=== PATIENT | male | born 1955 | race Caucasian/White ===

== ENCOUNTER 2023-10-17 18:55 | Inpatient (IN) | payer MEDICARE, OTHER ==
--- NOTE | 2023-10-17 19:11 | ED Physician Documentation ---
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 He quit smoking 12 years ago. He suddenly became short of breath with coughing and feeling something was stuck in his throat this evening. There is no associated chest pain or pedal edema. He does not wear oxygen at home. He does use inhalers at home. He is visiting from [facility] with his . PD PAST MEDICAL HISTORY - Past Medical History Past Medical History: Yes Cardiovascular: Hypertension, High cholesterol Respiratory: COPD - Past Surgical History Past Surgical History: Yes - Present Medications Home Medications: Ambulatory Orders Medication Instructions Recorded Confirmed Albuterol Sulfate [Proair See Rx Instructions .ROUTE 10/17/23 10/17/23 Respiclick] .COMPLEX PRN Amlodipine Besylate [Norvasc] 1 tab PO DAILY 10/17/23 10/17/23 Aspirin EC [Ecotrin] 1 tab PO DAILY 10/17/23 10/17/23 Atorvastatin Calcium [Lipitor] 1 tab PO QPM 10/17/23 10/17/23 Colesevelam HCl [Welchol] 2 tab PO BIDWM 10/17/23 10/17/23 Empagliflozin [Jardiance] 1 tab PO DAILY 10/17/23 10/17/23 Ezetimibe [Zetia] 1 tab PO HS 10/17/23 10/17/23 Fexofenadine [Alexandria] 1 tab PO DAILY 10/17/23 10/17/23 Metoprolol Succinate [Toprol Xl] 50 mg PO QPM 10/17/23 10/17/23 Omeprazole 1 cap PO HS 10/17/23 10/17/23 Telmisartan 1 tab PO QPM 10/17/23 10/17/23 Terazosin [Hytrin] 1 cap PO HS 10/17/23 10/17/23 Tiotropium Br/Olodaterol HCl 2 puffs INH DAILY 10/17/23 10/17/23 [Stiolto Respimat Inhaler (60)] - Allergies Allergies/Adverse Reactions: Allergies Allergy/AdvReac Type Severity Reaction Status Date / Time No Known Drug Allergies Allergy Verified 10/17/23 18:59 - Social History Does the pt smoke?: No Smoking Status: Never smoker Does the pt drink ETOH?: No Does the pt have substance abuse?: No - Immunizations Immunizations are current?: Yes PD ED PE NORMAL - Vitals Vital signs reviewed: Yes (He is hypoxic, mildly tachypneic and tachycardic.) - General General: Alert and oriented X 3, No acute distress - HEENT HEENT: Pharynx benign - Cardiac Cardiac: RRR, No murmur - Respiratory Respiratory: Other (Diminished throughout, most impressively at the left base where breath sounds are basically absent. Mildly labored breathing.) - Extremities Extremities: No edema, No calf tenderness / cord - Neuro Neuro: Alert and oriented X 3, Normal speech Results - Vitals Vitals: Vital Signs - 24 hr 10/17/23 10/17/23 10/17/23 18:59 19:15 19:23 Temperature 36.5 C Heart Rate 112 H 113 H 114 H Respiratory 28 H 28 H 34 H Rate Blood Pressure 146/60 H 155/73 H O2 Saturation 86 L 93 If not protocol : Oxygen Flow, liters/minute 10/17/23 19:53 Temperature Heart Rate 112 H Respiratory 32 H Rate Blood Pressure 147/70 H O2 Saturation 91 L If not protocol 6 : Oxygen Flow, liters/minute Oxygen O2 Source Nasal cannula Oxygen Flow Rate 6 - EKG (time done) 1935 EKG releavant findings:: EKG personally interpreted by author of this note. Relevant findings are: Rate: Rate (enter#) (113) Rhythm: Sinus tachycardia, LAE [place]: Normal Intervals: Normal [place] QRS: Normal Ischemia: Normal ST segments - Labs Labs: Laboratory Tests 10/17/23 10/17/23 10/17/23 19:11 19:11 19:11 WBC 21.5 H RBC 5.17 Hgb 16.3 Hct 48.1 MCV 93.0 MCH 31.5 H MCHC 33.9 RDW 14.0 Plt Count 262 MPV 9.6 Neut # (Auto) Not Reportable Lymph # (Auto) Not Reportable [place] # (Auto) Not Reportable Eos # (Auto) Not Reportable Baso # (Auto) Not Reportable Absolute Nucleated RBC Not Reportable Total Counted 100 Band Neuts % (Manual) 0 Abnorm Lymph % (Manual) 1 Nucleated RBC % Not Reportable Neutrophils # (Manual) 18.5 H Lymphocytes # (Manual) 1.7 Monocytes # (Manual) 1.1 H Eosinophils # (Manual) 0.2 Basophils # (Manual) 0.0 Differential Comment MANUAL DIFFERENTIAL WBC Morphology 1+ SMUDGE CELLS Platelet Estimate NORMAL (130-450,000) Platelet Morphology NORMAL APPEARANCE RBC Morph Micro Appear NORMAL APPEARANCE VBG pH 7.354 VBG pCO2 35.4 L VBG pO2 31.9 VBG HCO3 19.3 L VBG Total CO2 20.4 L VBG O2 Saturation 64.4 VBG Base Excess -5.3 L Sodium 135 Potassium 4.5 Chloride 106 Carbon Dioxide 21 Anion Gap 8.0 BUN 27 H Creatinine 1.5 H Estimated GFR (MDRD) 47 L Glucose 150 H Lactic Acid Calcium 9.9 Phosphorus 3.1 Magnesium 1.7 Total Bilirubin 0.5 AST 16 ALT 17 Alkaline Phosphatase 85 Total Protein 7.4 Albumin 4.6 Globulin 2.8 Albumin/Globulin Ratio 1.6 Nasal Adenovirus (PCR) Nasal B. parapertussis DNA (PCR) Nasal Coronavir 229E PCR Nasal Coronavir HKU1 PCR Nasal Coronavir NL63 PCR Nasal Coronavir OC43 PCR Nasal Enterovir/Rhinovir PCR Nasal Influenza B PCR Nasal Influenza A PCR Nasal Parainfluen 1 PCR Nasal Parainfluen 2 PCR Nasal Parainfluen 3 PCR Nasal Parainfluen 4 PCR Nasal RSV (PCR) Nasal B.pertussis DNA PCR Nasal C.pneumoniae (PCR) Cesar Human Metapneumo PCR Nasal M.pneumoniae (PCR) Nasal SARS-CoV-2 (PCR) 10/17/23 10/17/23 19:40 19:40 WBC RBC Hgb Hct MCV MCH MCHC RDW Plt Count MPV Neut # (Auto) Lymph # (Auto) [place] # (Auto) Eos # (Auto) Baso # (Auto) Absolute Nucleated RBC Total Counted Band Neuts % (Manual) Abnorm Lymph % (Manual) Nucleated RBC % Neutrophils # (Manual) Lymphocytes # (Manual) Monocytes # (Manual) Eosinophils # (Manual) Basophils # (Manual) Differential Comment WBC Morphology Platelet Estimate Platelet Morphology RBC Morph Micro Appear VBG pH VBG pCO2 VBG pO2 VBG HCO3 VBG Total CO2 VBG O2 Saturation VBG Base Excess Sodium Potassium Chloride Carbon Dioxide Anion Gap BUN Creatinine Estimated GFR (MDRD) Glucose Lactic Acid 1.4 Calcium Phosphorus Magnesium Total Bilirubin AST ALT Alkaline Phosphatase Total Protein Albumin Globulin Albumin/Globulin Ratio Nasal Adenovirus (PCR) NOT DETECTED Nasal B. parapertussis DNA (PCR) NOT DETECTED Nasal Coronavir 229E PCR NOT DETECTED Nasal Coronavir HKU1 PCR NOT DETECTED Nasal Coronavir NL63 PCR NOT DETECTED Nasal Coronavir OC43 PCR NOT DETECTED Nasal Enterovir/Rhinovir PCR NOT DETECTED Nasal Influenza B PCR NOT DETECTED Nasal Influenza A PCR NOT DETECTED Nasal Parainfluen 1 PCR NOT DETECTED Nasal Parainfluen 2 PCR NOT DETECTED Nasal Parainfluen 3 PCR NOT DETECTED Nasal Parainfluen 4 PCR NOT DETECTED Nasal RSV (PCR) NOT DETECTED Nasal B.pertussis DNA PCR NOT DETECTED Nasal C.pneumoniae (PCR) NOT DETECTED Cesar Human Metapneumo PCR NOT DETECTED Nasal M.pneumoniae (PCR) NOT DETECTED Nasal SARS-CoV-2 (PCR) NOT DETECTED - Rads (name of study) Single view chest x-ray was unremarkable Relevant Findings:: Final report received, EMP independent interpretation of test PD Medical Decision Making - ED course ED course: This is a 68-year-old gentleman who is visiting from [place] who presents with a sudden onset COPD exacerbation. Nothing in the history or physical to suggest PE or cardiac compromise. Workup in the emergency department demonstrates a white count of 21,000 and an otherwise normal CBC. His venous blood gas is relatively unremarkable. He does have some decreased renal function of unclear acuity given lack of prior records. He was treated in the emergency department with IV Rocephin and azithromycin after blood cultures. He was given nebs and steroids. He had a significant oxygen requirement and ended up being on 13 L at the time of decision to admit which was 8:23 PM when a telehealth consultation was placed. Departure - Departure Disposition: 66 [facility] DC/Xfer Clinical Impression: COPD with respiratory failure, acute Respiratory failure Qualifiers: Chronicity: acute Respiratory failure complication: hypoxia Qualified Code(s): J96.01 - Acute respiratory failure with hypoxia Condition: Serious Forms: PCP List
[2023-10-17 19:15] LABS: BASOPHILS % (AUTO) 0.4 %; EOSINOPHILS % (AUTO) 0.3 %; HCT - HEMATOCRIT 48.1 % (42.0-52.0); HGB - HEMOGLOBIN 16.3 g/dL (14.0-18.0); LYMPHOCYTES % (AUTO) 3.2 %; MEAN CORPUSCULAR HEMOGLOBIN 31.5 pg (27.0-31.0); MEAN CORPUSCULAR HGB CONC 33.9 g/dL (32.0-36.0); MEAN PLATELET VOLUME 9.6 fL (7.4-11.4); MONOCYTES % (AUTO) 5.3 %; NEUTROPHILS % (AUTO) 90.4 %; PLT - PLATELET COUNT 262 10^3/uL (130-450); RED BLOOD COUNT 5.17 10^6/uL (4.70-6.10); WHITE BLOOD COUNT 21.5 x10^3/uL (4.8-10.8)
[2023-10-17] MEDS: ALBUTEROL NEB 2.5 MG/3 ML INH STA (19:15)
[2023-10-17] MEDS: IPRATROPIUM/ALBUTEROL 3 ML NEB INH STA (19:15)
[2023-10-17 19:17] LABS: VBG BASE EXCESS -5.3 mmol/L (-2 - +2); VBG HCO3 19.3 mmol/L (23-28); VBG OXYGEN SATURATION 64.4 % (60-80); VBG PCO2 35.4 mmHg (41-51); VBG PH 7.354 (7.31-7.41); VBG PO2 31.9 mmHg (25-47); VBG TOTAL CO2 20.4 mmol/L (24-29)
[2023-10-17 19:24] LABS: BAND NEUTROPHILS % (MANUAL) 0 %
[2023-10-17 19:32] LABS: ALBUMIN 4.6 g/dL (3.2-5.5); ALBUMIN/GLOBULIN RATIO 1.6 (1.0-2.2); BILIRUBIN,TOTAL 0.5 mg/dL (0.2-1.0); CALCIUM 9.9 mg/dL (8.5-10.3); CREATININE 1.5 mg/dL (0.6-1.3); MAGNESIUM 1.7 mg/dL (1.7-2.3); PHOSPHORUS 3.1 mg/dL (2.5-5.0); POTASSIUM 4.5 mmol/L (3.5-4.5); TOTAL PROTEIN 7.4 g/dL (6.4-8.9)
[2023-10-17 19:34] LABS: ABNORMAL LYMPHS % (MANUAL) 1 %; EOSINOPHILS # (MANUAL) 0.2 10^3/uL (0-0.7); LYMPHOCYTES # (MANUAL) 1.7 10^3/uL (1.5-3.5); LYMPHOCYTES % (MANUAL) 7 %; MONOCYTES # (MANUAL) 1.1 10^3/uL (0.0-1.0); NEUTROPHILS # (MANUAL) 18.5 10^3/uL (1.5-6.6); PLATELET ESTIMATE, MANUAL NORMAL (130-450,000) (NORMAL); PLATELET MORPHOLOGY NORMAL APPEARANCE (NORMAL); RBC MORPHOLOGY (MULTIPLE) NORMAL APPEARANCE (NORMAL); WBC MORPHOLOGY (MULTIPLE) 1+ SMUDGE CELLS (NORMAL)
[2023-10-17 19:35] LABS: DIFFERENTIAL COMMENT MANUAL DIFFERENTIAL
--- NOTE | 2023-10-17 19:51 | XRAY Report ---
PROCEDURE: Chest 1V INDICATIONS: cough hypoxemia TECHNIQUE: One view of the chest was acquired. COMPARISON: None. FINDINGS: Surgical changes and devices: None. Lungs and pleura: No pleural effusions or pneumothorax. Lungs are clear. Mediastinum: Mediastinal contours appear normal. Heart size is normal. Bones and chest wall: No suspicious bony lesions. Overlying soft tissues appear unremarkable. IMPRESSION: No acute cardiopulmonary process. Reviewed by: Britney Rao MD, PhD on 10/17/2023 7:50 PM PDT Approved by: Britney Rao MD, PhD on 10/17/2023 7:50 PM PDT Station ID: [id number]
[2023-10-17] MEDS: methylPREDNISolone SUCCINATE 125 MG/2 ML VIAL IVP STA (19:56)
[2023-10-17] MEDS: AZITHROMYCIN INJ 500 MG in SODIUM CHLORIDE 0.9% 250 ML IV STA (19:56)
[2023-10-17] MEDS: cefTRIAXone 1 GM VIAL IVP STA (19:56)
[2023-10-17 20:42] LABS: B. PARAPERTUSSIS- RESP PCR PAN NOT DETECTED; B. PERTUSSIS- RESP PCR PANEL NOT DETECTED; C. PNEUMONIAE- RESP PCR PANEL NOT DETECTED; CORONAVIRUS 229E-RESP PCR NOT DETECTED; CORONAVIRUS HKU1-RESP PCR NOT DETECTED; CORONAVIRUS NL63-RESP PCR NOT DETECTED; CORONAVIRUS OC43-RESP PCR NOT DETECTED; HUMAN METAPNEUMOVIRUS NOT DETECTED; INFLUENZA A- RESP PCR PANEL NOT DETECTED; INFLUENZA B - RESP PCR PANEL NOT DETECTED; M. PNEUMONIAE- RESP PCR PANEL NOT DETECTED; PARAINFLUENZA VIRUS 1 NOT DETECTED; PARAINFLUENZA VIRUS 2 NOT DETECTED; PARAINFLUENZA VIRUS 3 NOT DETECTED; PARAINFLUENZA VIRUS 4 NOT DETECTED; RHINOVIRUS/ENTEROVIRUS NOT DETECTED; RSV- RESP PCR PANEL NOT DETECTED; SARS-CoV-2 -RESP PCR PANEL NOT DETECTED
[2023-10-17] MEDS ORDERED: iohexoL-300 100 ML VIAL ONE (21:13)
[2023-10-17] MEDS: iohexoL-300 100 ML VIAL IVP ONE (21:32)
--- NOTE | 2023-10-17 23:10 | CT Report ---
PROCEDURE: Angio Chest INDICATIONS: DYSPNEA, PE PROTOCOL CONTRAST: OMNI 300, 100mls TECHNIQUE: After the administration of intravenous contrast, 2 mm axial images were acquired from the pulmonary apices to the posterior costophrenic angles during the arterial phase. In addition, 1 mm lung kernel and 5 mm soft tissue kernel reconstructions were performed. 3-dimensional coronal oblique maximum int ensity projection (MIP) reformats, 8 mm axial MIP, and 5 mm coronal and sagittal MPR reformats were t hen performed through the thorax. For radiation dose reduction, the following was used: automated exp osure control, adjustment of mA and/or kV according to patient size. COMPARISON: Chest radiographs 10/17/2023. FINDINGS: Image quality: Excellent. Large vessels: No filling defects within the opacified pulmonary arteries, accounting for motion and contrast timing. No evidence of acute aortic syndrome or aortic aneurysm. Focal stenosis is seen at the origin of the brachiocephalic trunk. Lungs and pleura: No consolidation. No pleural effusions. No pneumothorax. No suspicious pulmonary n odules which require follow up. , (Bilateral emphysema in the bilateral upper lobes. Patchy ground g lass opacities are seen in the bilateral lower lobes and right middle lobe with peribronchovascular p redominance. Mediastinum: Heart size is normal. No pericardial effusion. No large vessel abnormality. No mediastin al adenopathy by size criteria. Moderate to severe coronary calcifications. Chest wall and lower neck: Thyroid is unremarkable. No axillary or supraclavicular adenopathy by size . Bones: No aggressive osseous abnormality. Upper Abdomen: Cholelithiasis. IMPRESSION: 1.No acute pulmonary embolus. 2.Patchy bilateral ground glass opacities are suspicious for an acute infectious or inflammatory proc ess. 3.Confluent centrilobular emphysema. 4.Cholelithiasis. Reviewed by: Nathaniel Quiñones MD on 10/17/2023 11:09 PM PDT Approved by: Nathaniel Quiñones MD on 10/17/2023 11:09 PM PDT Station ID: [id number]
--- NOTE | 2023-10-17 23:53 | HISTORY & PHYSICAL EXAMINATION ---
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 Presents to the ER with c/o shortness of breath. Onset this afternoon. He reports he had been coughing some yellow/green sputum earlier as well. He was wheezing, improved now since receiving steroids and nebs in the ER. He denies chest pain, palpitations, abd pain, n/v, diarrhea, dysuria, hematuria. Denies fevers or chills. Denies hemoptysis. Denies sick contacts (aside from any possible exposures while traveling). He is visiting from [facility]. He does not use home O2. Reports compliance with home meds/inhalers. He has never requiring hospitalization for COPD in the past. History - Past Medical History Cardiovascular: reports: Hypertension, High cholesterol Respiratory: reports: COPD MRSA Hx?: No Meds/Allgy - Home Medications Home Medications: Ambulatory Orders Medication Instructions Recorded Confirmed Albuterol Sulfate [Proair See Rx Instructions .ROUTE 10/17/23 10/17/23 Respiclick] .COMPLEX PRN Amlodipine Besylate [Norvasc] 1 tab PO DAILY 10/17/23 10/17/23 Aspirin EC [Ecotrin] 1 tab PO DAILY 10/17/23 10/17/23 Atorvastatin Calcium [Lipitor] 1 tab PO QPM 10/17/23 10/17/23 Colesevelam HCl [Welchol] 2 tab PO BIDWM 10/17/23 10/17/23 Empagliflozin [Jardiance] 1 tab PO DAILY 10/17/23 10/17/23 Ezetimibe [Zetia] 1 tab PO HS 10/17/23 10/17/23 Fexofenadine [Alexandria] 1 tab PO DAILY 10/17/23 10/17/23 Metoprolol Succinate [Toprol Xl] 50 mg PO QPM 10/17/23 10/17/23 Omeprazole 1 cap PO HS 10/17/23 10/17/23 Telmisartan 1 tab PO QPM 10/17/23 10/17/23 Terazosin [Hytrin] 1 cap PO HS 10/17/23 10/17/23 Tiotropium Br/Olodaterol HCl 2 puffs INH DAILY 10/17/23 10/17/23 [Stiolto Respimat Inhaler (60)] - Allergies Allergies/Adverse Reactions: Allergies Allergy/AdvReac Type Severity Reaction Status Date / Time No Known Drug Allergies Allergy Verified 10/17/23 18:59 Review of Systems - Constitutional Constitutional: denies: Fatigue, Fever, Chills, Malaise, Weakness - Cardiovascular Cariovascular: denies: Irregular heart rate, Palpitations, Chest pain - Respiratory Respiratory: reports: Cough, Sputum production, Wheezing, SOB at rest, SOB with exertion - Gastrointestinal Gastrointestinal: denies: Abdominal pain, Constipation, Diarrhea, Nausea, Vomiting - Genitourinary Genitourinary: denies: Dysuria, Frequency, Urgency, Hematuria - Musculoskeletal Musculoskeletal: denies: Muscle aches - Integumentary Integumentary: denies: Rash, Pruritis - Neurological Neurological: denies: General weakness - All Other Systems All Other Systems: reports: Reviewed and negative Exam - Vital Signs Reviewed Vital Signs: Yes Vital Signs: Vital Signs x48h Temp Pulse Resp BP Pulse Ox O2 Flow Rate 10/17/23 23:00 100 25 H 130/65 100 10/17/23 22:30 103 H 26 H 130/65 94 10/17/23 22:00 109 H 19 99 13 10/17/23 21:53 108 H 25 H 133/72 H 95 10/17/23 21:23 108 H 18 122/59 L 96 10/17/23 20:53 115 H 32 H 122/59 L 94 10/17/23 20:23 112 H 30 H 135/67 H 91 L 13 10/17/23 19:53 112 H 32 H 147/70 H 91 L 6 10/17/23 19:23 114 H 34 H 155/73 H 93 10/17/23 19:15 113 H 28 H 10/17/23 18:59 36.5 C 112 H 28 H 146/60 H 86 L - Physical Exam General Appearance: positive: No acute distress, Alert Respiratory: positive: No respiratory distress. negative: Wheezes Skin: positive: Color nml, No rash Neurologic/Psychiatric: positive: Oriented x3, Mood/affect nml Sepsis Event Note (H) - Evaluation Current Stage of Sepsis: Sepsis Possible source of Sepsis: positive: Pulmonary - Sepsis Criteria Sepsis Criteria: Recorded Heart Rate greater than 90 bpm, Recorded Respiratory Rate greater than 20, Respiratory: Increasing oxygen requirements, WBC count greater than 12,000 or less than 4000 Conclusion/Plan - Lab Results Lab results reviewed: Yes Fish Bones: 10/17/23 19:11 10/17/23 19:11 - Diagnostic Imaging Results Diagnostic Imaging Results: positive: Final report reviewed Diagnostic Imaging Results Comments: CXR unremarkable CTA chest bilateral ground glass opacities suspicious for infectious or infl ammatory process, negative for DVT - Other Other Results/Comments: Assessment/Plan: Sepsis secondary to community acquired pneumonia -Patient presents with tachycardia, tachypnea, elevated leukocytosis -Influenza/COVID/RSV negative -Bilateral opacities on CT chest, suspect community acquired pneumonia -Follow up procalcitonin -Lactic 1.9 -Continue azithromycin, ceftriaxone -Mucinex BID -IV fluid hydration overnight Acute hypoxic respiratory failure secondary to COPD exacerbation and CAP -Pt required 13 L O2 in ER, wean down as tolerated -Obtained CTA chest given tachy/hypoxia/recent travel -> negative for PE -Received IV solumedrol, continue PO prednisone 40 mg daily -IV abx as above -Scheduled duonebs HTN -BP stable, hold PO meds for now TEREZA vs CKD -Baseline Cr unknown, 1.5 at admission -IV fluid hydration as above and trend labs DVT ppx: Heparin sc Full code Core Measures - Anticipated LOS I expect patient to be DC'd or transferred within 96 hours.: Yes - DVT/VTE - Prophylaxis VTE/DVT Prophylaxis med ordered at admit?: Yes Telemedicine Consult Details - Provider Location & Consult Time Telemedicine consultation conducted via videoconferencing?: Yes List names and roles of persons who participated in consult:: patient + MD Telemedicine provider location:: [place], [place]
[2023-10-17] MEDS ORDERED: SODIUM CHLORIDE FLUSH 0.9% 10 ML SYRINGE IVP PRN (23:57)
[2023-10-17] MEDS ORDERED: ACETAMINOPHEN 325 MG TABLET PO PRN (23:57)
[2023-10-18] MEDS: guaiFENesin 600 MG TABLET PO SCH (00:38)
[2023-10-18] MEDS: SODIUM CHLORIDE FLUSH 0.9% 10 ML SYRINGE IVP SCH (00:38)
[2023-10-18] MEDS: SODIUM CHLORIDE 0.9% 1,000 ML IV SCH (00:40)
[2023-10-18 06:01] LABS: HCT - HEMATOCRIT 46.8 % (42.0-52.0); HGB - HEMOGLOBIN 15.5 g/dL (14.0-18.0); MEAN CORPUSCULAR HEMOGLOBIN 30.8 pg (27.0-31.0); MEAN CORPUSCULAR HGB CONC 33.1 g/dL (32.0-36.0); MEAN PLATELET VOLUME 10.3 fL (7.4-11.4); RED BLOOD COUNT 5.03 10^6/uL (4.70-6.10); RED CELL DISTRIBUTION WIDTH 14.3 % (12.0-15.0); WHITE BLOOD COUNT 29.1 x10^3/uL (4.8-10.8)
[2023-10-18 06:33] LABS: CALCIUM 9.6 mg/dL (8.5-10.3); CREATININE 1.5 mg/dL (0.6-1.3); POTASSIUM 4.3 mmol/L (3.5-4.5)
[2023-10-18] MEDS: IPRATROPIUM/ALBUTEROL 3 ML NEB INH SCH (07:05)
[2023-10-18] MEDS: HEPARIN 5,000 UNIT/ML VIAL SUBQ SCH (08:22)
[2023-10-18] MEDS: predniSONE 20 MG TABLET PO SCH (08:22)
[2023-10-18] MEDS: cefTRIAXone 1 GM in SODIUM CHLORIDE 0.9% MINIBAG 100 ML IV SCH (09:06)
[2023-10-18] MEDS: AZITHROMYCIN INJ 500 MG in SODIUM CHLORIDE 0.9% 250 ML IV SCH (09:52)
--- NOTE | 2023-10-18 11:20 | PHARMACY PROGRESS NOTE ---
- Best Possible Medication History Admit Date and Time: 10/17/23 2626 Processed by: Pharmacy Medications reviewed in ED?: Yes Medication History completed: Yes Patient Interview: Completed Secondary Source(s): Insurance records As the person ultimately responsible for medication therapy, providers are able to order a medication from an existing home medication list in [facility] via the "Reconcile Routine" prior to Confirmation of that medication by administrative support manager. Such practice is discouraged except when the physician, in their clinical judgment, deems that a medical need exists for a medication without regard to previous use.
--- NOTE | 2023-10-18 18:25 | PROVIDER PROGRESS NOTE ---
Subjective - Prog Note Date Prog Note Date: 10/18/23 Prog Note Time: 18:22 - Subjective Pt reports feeling: Improved Subjective: Patient was camping and on vacation when he had to come to the emergency room with his respiratory symptoms. He has been diagnosed as having pneumonia. is at the bedside and very, very anxious. They asked how long he is going to stay here. And what exactly is the diagnosis and what is my treatment. Long conversation of centrilobular emphysema and what that means. I described the anatomy of destruction to give you honeycombing. I described what the treatment is and why bronchodilators work and why inhaled steroids work. I also described the usual length of stay for pneumonia. They are much relieved when I explained that this is actually a treatable problem. He should leave here in 2 or 3 days. And then he can go back home. Which is [facility] [place] he is disappointed that he is not can to be discharged today. I gently reminded him that he is still significantly hypoxic. He has difficulty getting up out of bed to even go to the bathroom and he gets short of breath. That he can recover more in the next day or 2 and then go home. Objective - Vital Signs/Intake & Output Vital Signs: Vital Signs x48h Temp Pulse Pulse Resp BP Pulse Ox O2 Flow Rate 10/18/23 15:37 36.7 C 100 18 110/57 L 95 5 10/18/23 13:30 37.1 C 99 18 132/75 H 96 7 10/18/23 13:13 84 20 6 Intake & Output: Intake & Output 10/15/23 10/16/23 10/17/23 10/18/23 23:59 23:59 23:59 23:59 Intake Total 250 2100 Output Total 250 Balance 250 1850 - Lab Results Fish Bones: 10/18/23 05:14 10/18/23 05:14 Other Labs: Lab Results x24hrs 10/18/23 10/18/23 10/18/23 Range/Units 05:14 05:14 05:14 WBC 29.1 H (4.8-10.8) x10^3/uL RBC 5.03 (4.70-6.10) 10^6/uL Hgb 15.5 (14.0-18.0) g/dL Hct 46.8 (42.0-52.0) % MCV 93.0 (80.0-94.0) fL MCH 30.8 (27.0-31.0) pg MCHC 33.1 (32.0-36.0) g/dL RDW 14.3 (12.0-15.0) % Plt Count 260 (130-450) 10^3/uL MPV 10.3 (7.4-11.4) fL Neut # (Auto) Lymph # (Auto) [place] # (Auto) Eos # (Auto) Baso # (Auto) Absolute Nucleated RBC Total Counted Band Neuts % (Manual) (0 - 10) % Abnorm Lymph % (Manual) % Nucleated RBC % Neutrophils # (Manual) (1.5-6.6) 10^3/uL Lymphocytes # (Manual) (1.5-3.5) 10^3/uL Monocytes # (Manual) (0.0-1.0) 10^3/uL Eosinophils # (Manual) (0-0.7) 10^3/uL Basophils # (Manual) (0-0.1) 10^3/uL Differential Comment WBC Morphology (NORMAL) Platelet Estimate (NORMAL) Platelet Morphology (NORMAL) RBC Morph Micro Appear (NORMAL) VBG pH (7.31-7.41) VBG pCO2 (41-51) mmHg VBG pO2 (25-47) mmHg VBG HCO3 (23-28) mmol/L VBG Total CO2 (24-29) mmol/L VBG O2 Saturation (60-80) % VBG Base Excess (-2 - +2) mmol/L Sodium 136 (135-145) mmol/L Potassium 4.3 (3.5-4.5) mmol/L Chloride 107 (101-111) mmol/L Carbon Dioxide 18 L (21-32) mmol/L Anion Gap 11.0 (6-13) BUN 26 H (6-20) mg/dL Creatinine 1.5 H (0.6-1.3) mg/dL Estimated GFR (MDRD) 47 L (>89) Glucose 141 H (74-104) mg/dL Lactic Acid (0.5-2.2) mmol/L Calcium 9.6 (8.5-10.3) mg/dL Phosphorus (2.5-5.0) mg/dL Magnesium (1.7-2.3) mg/dL Total Bilirubin (0.2-1.0) mg/dL AST (10-42) IU/L ALT (10-60) IU/L Alkaline Phosphatase (42-121) IU/L Troponin I High Sens (2.3-19.7) ng/L Total Protein (6.4-8.9) g/dL Albumin (3.2-5.5) g/dL Globulin (2.1-4.2) g/dL Albumin/Globulin Ratio (1.0-2.2) Procalcitonin Immunoas 3.83 H* (<0.5) ng/mL Nasal Adenovirus (PCR) Nasal B. parapertussis DNA (PCR) Nasal Coronavir 229E PCR Nasal Coronavir HKU1 PCR Nasal Coronavir NL63 PCR Nasal Coronavir OC43 PCR Nasal Enterovir/Rhinovir PCR Nasal Influenza B PCR Nasal Influenza A PCR Nasal Parainfluen 1 PCR Nasal Parainfluen 2 PCR Nasal Parainfluen 3 PCR Nasal Parainfluen 4 PCR Nasal RSV (PCR) Nasal B.pertussis DNA PCR Nasal C.pneumoniae (PCR) Cesar Human Metapneumo PCR Nasal M.pneumoniae (PCR) Nasal SARS-CoV-2 (PCR) 10/17/23 10/17/23 10/17/23 Range/Units 21:15 19:40 19:40 WBC (4.8-10.8) x10^3/uL RBC (4.70-6.10) 10^6/uL Hgb (14.0-18.0) g/dL Hct (42.0-52.0) % MCV (80.0-94.0) fL MCH (27.0-31.0) pg MCHC (32.0-36.0) g/dL RDW (12.0-15.0) % Plt Count (130-450) 10^3/uL MPV (7.4-11.4) fL Neut # (Auto) Lymph # (Auto) [place] # (Auto) Eos # (Auto) Baso # (Auto) Absolute Nucleated RBC Total Counted Band Neuts % (Manual) (0 - 10) % Abnorm Lymph % (Manual) % Nucleated RBC % Neutrophils # (Manual) (1.5-6.6) 10^3/uL Lymphocytes # (Manual) (1.5-3.5) 10^3/uL Monocytes # (Manual) (0.0-1.0) 10^3/uL Eosinophils # (Manual) (0-0.7) 10^3/uL Basophils # (Manual) (0-0.1) 10^3/uL Differential Comment WBC Morphology (NORMAL) Platelet Estimate (NORMAL) Platelet Morphology (NORMAL) RBC Morph Micro Appear (NORMAL) VBG pH (7.31-7.41) VBG pCO2 (41-51) mmHg VBG pO2 (25-47) mmHg VBG HCO3 (23-28) mmol/L VBG Total CO2 (24-29) mmol/L VBG O2 Saturation (60-80) % VBG Base Excess (-2 - +2) mmol/L Sodium (135-145) mmol/L Potassium (3.5-4.5) mmol/L Chloride (101-111) mmol/L Carbon Dioxide (21-32) mmol/L Anion Gap (6-13) BUN (6-20) mg/dL Creatinine (0.6-1.3) mg/dL Estimated GFR (MDRD) (>89) Glucose (74-104) mg/dL Lactic Acid 1.4 (0.5-2.2) mmol/L Calcium (8.5-10.3) mg/dL Phosphorus (2.5-5.0) mg/dL Magnesium (1.7-2.3) mg/dL Total Bilirubin (0.2-1.0) mg/dL AST (10-42) IU/L ALT (10-60) IU/L Alkaline Phosphatase (42-121) IU/L Troponin I High Sens 12.6 (2.3-19.7) ng/L Total Protein (6.4-8.9) g/dL Albumin (3.2-5.5) g/dL Globulin (2.1-4.2) g/dL Albumin/Globulin Ratio (1.0-2.2) Procalcitonin Immunoas (<0.5) ng/mL Nasal Adenovirus (PCR) NOT DETECTED Nasal B. parapertussis DNA (PCR) NOT DETECTED Nasal Coronavir 229E PCR NOT DETECTED Nasal Coronavir HKU1 PCR NOT DETECTED Nasal Coronavir NL63 PCR NOT DETECTED Nasal Coronavir OC43 PCR NOT DETECTED Nasal Enterovir/Rhinovir PCR NOT DETECTED Nasal Influenza B PCR NOT DETECTED Nasal Influenza A PCR NOT DETECTED Nasal Parainfluen 1 PCR NOT DETECTED Nasal Parainfluen 2 PCR NOT DETECTED Nasal Parainfluen 3 PCR NOT DETECTED Nasal Parainfluen 4 PCR NOT DETECTED Nasal RSV (PCR) NOT DETECTED Nasal B.pertussis DNA PCR NOT DETECTED Nasal C.pneumoniae (PCR) NOT DETECTED Cesar Human Metapneumo PCR NOT DETECTED Nasal M.pneumoniae (PCR) NOT DETECTED Nasal SARS-CoV-2 (PCR) NOT DETECTED 10/17/23 10/17/23 10/17/23 Range/Units 19:11 19:11 19:11 WBC 21.5 H (4.8-10.8) x10^3/uL RBC 5.17 (4.70-6.10) 10^6/uL Hgb 16.3 (14.0-18.0) g/dL Hct 48.1 (42.0-52.0) % MCV 93.0 (80.0-94.0) fL MCH 31.5 H (27.0-31.0) pg MCHC 33.9 (32.0-36.0) g/dL RDW 14.0 (12.0-15.0) % Plt Count 262 (130-450) 10^3/uL MPV 9.6 (7.4-11.4) fL Neut # (Auto) Not Reportable Lymph # (Auto) Not Reportable [place] # (Auto) Not Reportable Eos # (Auto) Not Reportable Baso # (Auto) Not Reportable Absolute Nucleated RBC Not Reportable Total Counted 100 Band Neuts % (Manual) 0 (0 - 10) % Abnorm Lymph % (Manual) 1 % Nucleated RBC % Not Reportable Neutrophils # (Manual) 18.5 H (1.5-6.6) 10^3/uL Lymphocytes # (Manual) 1.7 (1.5-3.5) 10^3/uL Monocytes # (Manual) 1.1 H (0.0-1.0) 10^3/uL Eosinophils # (Manual) 0.2 (0-0.7) 10^3/uL Basophils # (Manual) 0.0 (0-0.1) 10^3/uL Differential Comment MANUAL DIFFERENTIAL WBC Morphology 1+ SMUDGE CELLS (NORMAL) Platelet Estimate NORMAL (130-450,000) (NORMAL) Platelet Morphology NORMAL APPEARANCE (NORMAL) RBC Morph Micro Appear NORMAL APPEARANCE (NORMAL) VBG pH 7.354 (7.31-7.41) VBG pCO2 35.4 L (41-51) mmHg VBG pO2 31.9 (25-47) mmHg VBG HCO3 19.3 L (23-28) mmol/L VBG Total CO2 20.4 L (24-29) mmol/L VBG O2 Saturation 64.4 (60-80) % VBG Base Excess -5.3 L (-2 - +2) mmol/L Sodium 135 (135-145) mmol/L Potassium 4.5 (3.5-4.5) mmol/L Chloride 106 (101-111) mmol/L Carbon Dioxide 21 (21-32) mmol/L Anion Gap 8.0 (6-13) BUN 27 H (6-20) mg/dL Creatinine 1.5 H (0.6-1.3) mg/dL Estimated GFR (MDRD) 47 L (>89) Glucose 150 H (74-104) mg/dL Lactic Acid (0.5-2.2) mmol/L Calcium 9.9 (8.5-10.3) mg/dL Phosphorus 3.1 (2.5-5.0) mg/dL Magnesium 1.7 (1.7-2.3) mg/dL Total Bilirubin 0.5 (0.2-1.0) mg/dL AST 16 (10-42) IU/L ALT 17 (10-60) IU/L Alkaline Phosphatase 85 (42-121) IU/L Troponin I High Sens (2.3-19.7) ng/L Total Protein 7.4 (6.4-8.9) g/dL Albumin 4.6 (3.2-5.5) g/dL Globulin 2.8 (2.1-4.2) g/dL Albumin/Globulin Ratio 1.6 (1.0-2.2) Procalcitonin Immunoas (<0.5) ng/mL Nasal Adenovirus (PCR) Nasal B. parapertussis DNA (PCR) Nasal Coronavir 229E PCR Nasal Coronavir HKU1 PCR Nasal Coronavir NL63 PCR Nasal Coronavir OC43 PCR Nasal Enterovir/Rhinovir PCR Nasal Influenza B PCR Nasal Influenza A PCR Nasal Parainfluen 1 PCR Nasal Parainfluen 2 PCR Nasal Parainfluen 3 PCR Nasal Parainfluen 4 PCR Nasal RSV (PCR) Nasal B.pertussis DNA PCR Nasal C.pneumoniae (PCR) Cesar Human Metapneumo PCR Nasal M.pneumoniae (PCR) Nasal SARS-CoV-2 (PCR) Sepsis Event Note (H) - Evaluation Current Stage of Sepsis: Sepsis Possible source of Sepsis: positive: Pulmonary - Sepsis Criteria Sepsis Criteria: Recorded Heart Rate greater than 90 bpm, Recorded Respiratory Rate greater than 20, Respiratory: Increasing oxygen requirements, WBC count greater than 12,000 or less than 4000 Assessment/Plan - Problem List (1) Sepsis Impression: He presented as hypoxia, tachypnea, elevated white cell count, and a relative drop in blood pressure. He has responded to therapy and that sepsis criteria have resolved except for the slight drop in blood pressure. Source is pneumonia. (2) Acute respiratory failure with hypoxia Impression: Patient presents as cough, congestion, and pneumonia on chest x-ray. Started on antibiotics, nebulizers, inhaled steroids. Started at 13 L Oxymizer. By this morning he was 7 L Oxymizer. By this afternoon he is 5 L Oxymizer. White cell count was 21.5 thousand on admission with a left shift. Today he is 29.1 and differential was not done. But he varies between 5-7 to keep his O2 sats above 92%. He shares with me that his baseline O2 sat with a COPD is 92% on room air. He has not needed oxygen yet. Blood cultures have been ordered and are pending. He did not get sputum cultures. Plan: continue rocephin Day #2/5 and azithromycin Day #2/3 of abx. His oxygen requirements have gone down so I do think he is getting better. The white cell count may be just demargination from steroids. But I will be keeping an eye on that as an indicator of clinical improvement. If blood cultures come back positive, I will then adjust antibiotics and narrow treatment plan depending on sensitivities (3) COPD with respiratory failure, acute Impression: anatomy of centrilobular emphysema discussed with the patient and . Diagrams drawn. They are very grateful that they have an understanding of what his is disease now. conceptually they never really understood what his lung disease was about. At home he is usually on respi click with albuterol, and Mauri Tropium. Here we have him on DuoNeb and prednisone p.o. Plan: Stop prednisone at 5 days. Continue DuoNeb until discharge. I did have a brief discussion about advance care planning. Right now he is a full code. But they have never really thought about the progression of his disease. They were not aware that it would get steadily worse over time. And they are interested in doing advance care planning conversation tomorrow. (4) Type 2 diabetes mellitus, uncontrolled Impression: At home he takes Jardiance. He is not on anything for his glucose here. With the steroids his glucose was 150 yesterday, 141 today. Plan: I will order Sliding scale insulin with hypoglycemia protocol Qualifiers: Glycemic state: with hyperglycemia Qualified Code(s): E11.65 - Type 2 diabetes mellitus with hyperglycemia (5) Hypertension Impression: At home he is on Norvasc, beta-sheila, and ARB to drug. Without medication he is 110 systolic this afternoon. At this time I am not can to be resuming his home meds until his blood pressure gets high enough for me to do so. I will most likely start on his beta-sheila followed by the ARB. I want to avoid rebound tachycardia Qualifiers: Hypertension type: primary hypertension Qualified Code(s): I10 - Essential (primary) hypertension
[2023-10-18] MEDS: BENZONATATE 100 MG CAPSULE PO PRN (20:29)
[2023-10-18] MEDS: INSULIN LISPRO 300 UNIT/3 ML PEN SUBQ SCH (20:30)
[2023-10-19 05:21] LABS: BASOPHILS % (AUTO) 0.1 %; HCT - HEMATOCRIT 43.3 % (42.0-52.0); HGB - HEMOGLOBIN 14.2 g/dL (14.0-18.0); LYMPHOCYTES # (AUTO) 1.1 10^3/uL (1.5-3.5); LYMPHOCYTES % (AUTO) 5.2 %; MEAN CORPUSCULAR HEMOGLOBIN 31.1 pg (27.0-31.0); MEAN CORPUSCULAR HGB CONC 32.8 g/dL (32.0-36.0); MEAN CORPUSCULAR VOLUME 94.7 fL (80.0-94.0); MONOCYTES # (AUTO) 1.4 10^3/uL (0.0-1.0); MONOCYTES % (AUTO) 6.3 %; NEUTROPHILS # (AUTO) 19.3 10^3/uL (1.5-6.6); NEUTROPHILS % (AUTO) 87.9 %; PLT - PLATELET COUNT 244 10^3/uL (130-450); RED BLOOD COUNT 4.57 10^6/uL (4.70-6.10); RED CELL DISTRIBUTION WIDTH 14.9 % (12.0-15.0); WHITE BLOOD COUNT 21.9 x10^3/uL (4.8-10.8)
[2023-10-19 05:35] LABS: CALCIUM 9.2 mg/dL (8.5-10.3); CREATININE 1.3 mg/dL (0.6-1.3); POTASSIUM 4.2 mmol/L (3.5-4.5)
[2023-10-19 06:29] LABS: DIFFERENTIAL COMMENT MANUAL=AUTO DIFF; PLATELET ESTIMATE, MANUAL NORMAL (130-450,000) (NORMAL); RBC MORPHOLOGY (MULTIPLE) NORMAL APPEARANCE (NORMAL)
[2023-10-19 07:50] LABS: ESTIMATED AVERAGE GLUCOSE 128 mg/dL (70-100); HEMOGLOBIN A1c% 6.1 % (4.27-6.07)
--- NOTE | 2023-10-19 13:13 | PROVIDER PROGRESS NOTE ---
Assessment/Plan - Problem List (1) Acute respiratory failure with hypoxia Assessment/Plan: Impression: Patient presents as cough, congestion, and pneumonia on chest x-ray. Started on antibiotics, nebulizers, inhaled steroids. Started at 13 L Oxymizer. currently on 4-5L oxymizer with O2sat 91-93%. By this afternoon he is 5 L Oxymizer. White cell count was 21.5 thousand on admission with a left shift. Today he is 21.9 and differential remains with elevated neutrophils. He shares with me that his baseline O2 sat with a COPD is 92% on room air. He has not needed oxygen yet in the outpatient environment. Here he has been able to get up to the bathroom with assistance. Blood cultures have been ordered and are pending- no reported growth. He did not get sputum cultures. Plan: continue rocephin Day #3/5 and azithromycin Day #3/3 of abx: will dc this His oxygen requirements remain stable. The white cell count is down slightly from 29 to 21 If blood cultures come back positive, I will then adjust antibiotics and narrow treatment plan depending on sensitivities (3) COPD with respiratory failure, acute Impression: anatomy of centrilobular emphysema discussed with the patient and previously by Dr Hernandez At home he is usually on respi click with albuterol, and Tiotropium. Here we have him on DuoNeb and prednisone p.o. Plan: Stop prednisone at 5 days (currently day 2/5). Continue DuoNeb until discharge. (4) Type 2 diabetes mellitus, uncontrolled Impression: At home he takes Jardiance. He is not on anything for his glucose here. had some hyperglycemia, and therefore SSI was ordered. Plan: he is on Sliding scale insulin with hypoglycemia protocol- no doses of insulin have been required. POC glucose readings have ranged 112-121. He will stay on this medication and I will continue to monitor glucose. Qualifiers: Glycemic state: with hyperglycemia Qualified Code(s): E11.65 - Type 2 tiki betes mellitus with hyperglycemia (5) Hypertension Impression: At home he is on Norvasc, beta-sheila, and ARB to drug. Without medication he is 101 systolic this afternoon. At this time I am not can to be resuming his home meds until his blood pressure gets high enough for me to do so. I will most likely start on his beta-sheila followed by the ARB. I want to avoid rebound tachycardia. He is not feeling dizzy. Qualifiers: Hypertension type: primary hypertension Qualified Code(s): I10 - Essential (primary) hypertension - Current Meds Current Meds: Current Medications Generic Name Dose Route Start Last Admin Trade Name Freq PRN Reason Stop Dose Admin Benzonatate 100 mg 10/18/23 19:47 10/19/23 08:14 Benzonatate 100 Mg Capsule PO 100 mg TID PRN Administration Cough Guaifenesin 600 mg 10/18/23 01:00 10/19/23 08:09 Guaifenesin 600 Mg Tablet PO 600 mg BID CHU Administration Heparin Sodium (Porcine) 5,000 unit 10/18/23 09:00 10/19/23 08:09 Heparin 5,000 Unit/Ml Vial SUBQ 5,000 unit BID CHU Administration Sodium Chloride 1,000 mls @ 100 mls/hr 10/17/23 23:45 10/19/23 08:18 Normal Saline 0.9% IV 100 mls/hr .Q10H CHU Administration Ceftriaxone Sodium 1 gm/ 100 mls @ 200 mls/hr 10/18/23 09:00 10/19/23 08:45 Sodium Chloride IV 10/22/23 08:59 Infused DAILY CHU Infusion Insulin Human Lispro 1 - 5 unit 10/18/23 21:00 10/19/23 12:05 Insulin Lispro 300 Unit/3 Ml Pen SUBQ Not Given 0800,1200,1700,2100 [facility] Protocol Prednisone 40 mg 10/18/23 09:00 10/19/23 08:08 Prednisone 20 Mg Tablet PO 40 mg DAILY CHU Administration Sodium Chloride 10 ml 10/18/23 01:00 10/19/23 08:18 Sodium Chloride Flush 0.9% 10 Ml Syringe IVP 10 ml 0100,0900,1700 CHU Administration - Lab Result Fish Bone Diagrams: 10/19/23 05:04 10/19/23 05:04 - Additional Planning My Orders: My Active Orders 10/18/23 19:47 Benzonatate [Tessalon] 100 mg PO TID PRN Subjective - Subjective Patient Reports: Feeling Better (Out of bed sitting in the chair. He feels better today. He is able to relate to me that in his daily life at home he is quite active. He takes an hour and a half walk with his dog through the [place] every day. They go slow and he does occasionally have to stop to rest. He is also able to mow hi) Nursing Reports: No Complaints Objective Vital Signs: Vital Signs - 24 hr 10/18/23 10/18/23 10/18/23 13:13 13:30 15:37 Temperature 37.1 C 36.7 C Heart Rate 84 Heart Rate [ 99 100 Brachial] Respiratory 20 18 18 Rate Blood Pressure 132/75 H 110/57 L [Left Brachial artery] O2 Saturation 96 95 If not protocol 6 7 5 : Oxygen Flow, liters/minute 10/18/23 10/18/23 10/19/23 19:35 21:00 01:00 Temperature 36.9 C 36.8 C Heart Rate Heart Rate [ 102 H 94 Brachial] Respiratory 20 18 Rate Blood Pressure 109/64 116/63 [Left Brachial artery] O2 Saturation 94 96 If not protocol 5 5 5 : Oxygen Flow, liters/minute 10/19/23 10/19/23 10/19/23 05:00 06:10 08:05 Temperature 36.7 C 36.8 C Heart Rate 97 Heart Rate [ 88 104 H Brachial] Respiratory 18 22 18 Rate Blood Pressure 125/69 101/60 [Left Brachial artery] O2 Saturation 98 96 If not protocol 5 4 6 : Oxygen Flow, liters/minute 10/19/23 11:28 Temperature Heart Rate 78 Heart Rate [ Brachial] Respiratory 20 Rate Blood Pressure [Left Brachial artery] O2 Saturation If not protocol 5 : Oxygen Flow, liters/minute Oxygen O2 Source Oxymizer Oxygen Flow Rate 6 10/19/23 13:21 Last Vital Signs Temp 36.8 C 10/19/23 08:05 Pulse 78 10/19/23 11:28 Resp 20 10/19/23 11:28 BP 101/60 10/19/23 08:05 Pulse Ox 96 10/19/23 08:05 O2 Flow Rate 5 10/19/23 11:28 I&O (Last 24 Hrs): Intake and Output Totals x24h 10/17/23 10/18/23 10/19/23 23:59 23:59 23:59 Intake Total 250 3098.333 1556.667 Output Total 250 Balance 250 2848.333 1556.667 General: Alert, Oriented x3, Cooperative HEENT: PERRLA Neck: Supple Neuro: Alert, Non Focal, Oriented Times 3 Cardiovascular: Regular rate Respiratory: Rhonchi (occasional on deep inspiration at bases) Abdomen: Normal bowel sounds, No tenderness Extremities: No clubbing, No cyanosis, No edema Skin: No rashes - Results Results: Laboratory Results WBC 21.9 x10^3/uL (4.8-10.8) H 10/19/23 05:04 RBC 4.57 10^6/uL (4.70-6.10) L 10/19/23 05:04 Hgb 14.2 g/dL (14.0-18.0) 10/19/23 05:04 Hct 43.3 % (42.0-52.0) 10/19/23 05:04 MCV 94.7 fL (80.0-94.0) H 10/19/23 05:04 MCH 31.1 pg (27.0-31.0) H 10/19/23 05:04 MCHC 32.8 g/dL (32.0-36.0) 10/19/23 05:04 RDW 14.9 % (12.0-15.0) 10/19/23 05:04 Plt Count 244 10^3/uL (130-450) 10/19/23 05:04 MPV 10.0 fL (7.4-11.4) 10/19/23 05:04 Neut # (Auto) 19.3 10^3/uL (1.5-6.6) H 10/19/23 05:04 Lymph # (Auto) 1.1 10^3/uL (1.5-3.5) L 10/19/23 05:04 [place] # (Auto) 1.4 10^3/uL (0.0-1.0) H 10/19/23 05:04 Eos # (Auto) 0.0 10^3/uL (0.0-0.7) 10/19/23 05:04 Baso # (Auto) 0.0 10^3/uL (0.0-0.1) 10/19/23 05:04 Absolute Nucleated RBC 0.00 x10^3/uL 10/19/23 05:04 Total Counted 100 10/17/23 19:11 Band Neuts % (Manual) Not Reportable 10/19/23 05:04 Abnorm Lymph % (Manual) Not Reportable 10/19/23 05:04 Nucleated RBC % 0.0 /100WBC 10/19/23 05:04 Neutrophils # (Manual) Not Reportable 10/19/23 05:04 Lymphocytes # (Manual) Not Reportable 10/19/23 05:04 Monocytes # (Manual) Not Reportable 10/19/23 05:04 Eosinophils # (Manual) Not Reportable 10/19/23 05:04 Basophils # (Manual) Not Reportable 10/19/23 05:04 Differential Comment MANUAL=AUTO DIFF 10/19/23 05:04 WBC Morphology 1+ SMUDGE CELLS (NORMAL) 10/17/23 19:11 Platelet Estimate NORMAL (130-450,000) (NORMAL) 10/19/23 05:04 Platelet Morphology NORMAL APPEARANCE (NORMAL) 10/17/23 19:11 RBC Morph Micro Appear NORMAL APPEARANCE (NORMAL) 10/19/23 05:04 VBG pH 7.354 (7.31-7.41) 10/17/23 19:11 VBG pCO2 35.4 mmHg (41-51) L 10/17/23 19:11 VBG pO2 31.9 mmHg (25-47) 10/17/23 19:11 VBG HCO3 19.3 mmol/L (23-28) L 10/17/23 19:11 VBG Total CO2 20.4 mmol/L (24-29) L 10/17/23 19:11 VBG O2 Saturation 64.4 % (60-80) 10/17/23 19:11 VBG Base Excess -5.3 mmol/L (-2 - +2) L 10/17/23 19:11 Sodium 139 mmol/L (135-145) 10/19/23 05:04 Potassium 4.2 mmol/L (3.5-4.5) 10/19/23 05:04 Chloride 113 mmol/L (101-111) H 10/19/23 05:04 Carbon Dioxide 20 mmol/L (21-32) L 10/19/23 05:04 Anion Gap 6.0 (6-13) 10/19/23 05:04 BUN 24 mg/dL (6-20) H 10/19/23 05:04 Creatinine 1.3 mg/dL (0.6-1.3) 10/19/23 05:04 Estimated GFR (MDRD) 55 (>89) L 10/19/23 05:04 Glucose 104 mg/dL (74-104) 10/19/23 05:04 POC Whole Bld Glucose 121 mg/dL (70 - 100) H 10/19/23 11:26 Estimat Average Glucose 128 mg/dL (70-100) H 10/19/23 05:04 Hemoglobin A1c % 6.1 % (4.27-6.07) H 10/19/23 05:04 Lactic Acid 1.4 mmol/L (0.5-2.2) 10/17/23 19:40 Calcium 9.2 mg/dL (8.5-10.3) 10/19/23 05:04 Phosphorus 3.1 mg/dL (2.5-5.0) 10/17/23 19:11 Magnesium 1.7 mg/dL (1.7-2.3) 10/17/23 19:11 Total Bilirubin 0.5 mg/dL (0.2-1.0) 10/17/23 19:11 AST 16 IU/L (10-42) 10/17/23 19:11 ALT 17 IU/L (10-60) 10/17/23 19:11 Alkaline Phosphatase 85 IU/L (42-121) 10/17/23 19:11 Troponin I High Sens 12.6 ng/L (2.3-19.7) 10/17/23 21:15 Total Protein 7.4 g/dL (6.4-8.9) 10/17/23 19:11 Albumin 4.6 g/dL (3.2-5.5) 10/17/23 19:11 Globulin 2.8 g/dL (2.1-4.2) 10/17/23 19:11 Albumin/Globulin Ratio 1.6 (1.0-2.2) 10/17/23 19:11 Procalcitonin Immunoas 3.83 ng/mL (<0.5) H* 10/18/23 05:14 Nasal Adenovirus (PCR) NOT DETECTED 10/17/23 19:40 Nasal B. parapertussis DNA (PCR) NOT DETECTED 10/17/23 19:40 Nasal Coronavir 229E PCR NOT DETECTED 10/17/23 19:40 Nasal Coronavir HKU1 PCR NOT DETECTED 10/17/23 19:40 Nasal Coronavir NL63 PCR NOT DETECTED 10/17/23 19:40 Nasal Coronavir OC43 PCR NOT DETECTED 10/17/23 19:40 Nasal Enterovir/Rhinovir PCR NOT DETECTED 10/17/23 19:40 Nasal Influenza B PCR NOT DETECTED 10/17/23 19:40 Nasal Influenza A PCR NOT DETECTED 10/17/23 19:40 Nasal Parainfluen 1 PCR NOT DETECTED 10/17/23 19:40 Nasal Parainfluen 2 PCR NOT DETECTED 10/17/23 19:40 Nasal Parainfluen 3 PCR NOT DETECTED 10/17/23 19:40 Nasal Parainfluen 4 PCR NOT DETECTED 10/17/23 19:40 Nasal RSV (PCR) NOT DETECTED 10/17/23 19:40 Nasal B.pertussis DNA PCR NOT DETECTED 10/17/23 19:40 Nasal C.pneumoniae (PCR) NOT DETECTED 10/17/23 19:40 Cesar Human Metapneumo PCR NOT DETECTED 10/17/23 19:40 Nasal M.pneumoniae (PCR) NOT DETECTED 10/17/23 19:40 Nasal SARS-CoV-2 (PCR) NOT DETECTED 10/17/23 19:40 Sepsis Event Note (H) - Evaluation Current Stage of Sepsis: Sepsis Possible source of Sepsis: positive: Pulmonary - Sepsis Criteria Sepsis Criteria: Recorded Heart Rate greater than 90 bpm, Recorded Respiratory Rate greater than 20, Respiratory: Increasing oxygen requirements, WBC count greater than 12,000 or less than 4000 Current Medications - Current Medications Current Medications: Medications Benzonatate (Benzonatate 100 Mg Capsule) 100 mg PO TID PRN PRN Reason: Cough Last Admin: 10/19/23 08:14 Dose: 100 mg Acetaminophen (Acetaminophen 325 Mg Tablet) 650 mg PO Q4HR PRN PRN Reason: Pain 1 to 4, or Fever Albuterol/Ipratropium (Ipratropium/Albuterol 3 Ml Neb) 3 ml INH RTQID [facility] Ceftriaxone Sodium 1 gm/ (Sodium Chloride) 100 mls @ 200 mls/hr IV DAILY [facility] Stop: 10/22/23 08:59 Last Admin: 10/19/23 08:45 Dose: Infused Guaifenesin (Guaifenesin 600 Mg Tablet) 600 mg PO BID [facility] Last Admin: 10/19/23 08:09 Dose: 600 mg Heparin Sodium (Porcine) (Heparin 5,000 Unit/Ml Vial) 5,000 unit SUBQ BID [facility] Last Admin: 10/19/23 08:09 Dose: 5,000 unit Insulin Human Lispro (Insulin Lispro 300 Unit/3 Ml Pen) 1 - 5 unit SUBQ 0800,1200,1700,2100 [facility]; Protocol Last Admin: 10/19/23 12:05 Dose: Not Given Prednisone (Prednisone 20 Mg Tablet) 40 mg PO DAILY [facility] Last Admin: 10/19/23 08:08 Dose: 40 mg
--- NOTE | 2023-10-19 14:24 | ADVANCE CARE PLANNING NOTE ---
Advance Care Planning - Planning Encounter Date: 10/19/23 Time: 14:19 Parties in Attendance: SPouse, Darci Smith, Essie Khanna PA-C - Encounter Subjective/Patient's Story: 68-year-old male with a diagnosis of COPD for about 10 years. Has been stable without home O2 on outpatient medications. Admitted to the hospital with diagnoses of pneumonia and COPD exacerbation. He enjoys traveling in his RV. This winter he did a month-long trip to the [facility]. He is currently on a month-long trip from [facility] to [facility]. He is planning on a late summer trip to the [facility] lasting 2 months. When at home he takes an hour and a half long walk [place] the [place] with his hunting dog. He also is active around the house he mows his lawn with a push mower. He does occasionally have to stop to rest, but overall his pulmonary capacity does not limit him. 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 He retired at the age of [age] years old in 2 months. Quite a few years ago he and his old filled out durable rangel of criminal attorney for healthcare. His spouse is his primary decision-maker should he become unable to make decisions. His son would be secondary. Objective/Medical Story: The progressive nature of COPD is new information for him and his spouse. They were not aware that his disease could get worse over time. Currently he is limited very little in his life and work. For that reason he would like to continue with full interventions with regards to his medical care. Goals of Care: At this time he would like to use all measures possible to sustain life. If he were to need to be chronically on a ventilator he does not want to consent continue that therapy. He and his have discussed this and agreed upon this. Due to his excellent quality of life at the current time, a short course on a ventilator is acceptable. Plan: Full code. Code Status: Attempt Resuscitation Time spent on advance care plannin minutes
[2023-10-19] MEDS: IPRATROPIUM/ALBUTEROL 3 ML NEB INH SCH (16:28)
[2023-10-20 05:54] LABS: BASOPHILS % (AUTO) 0.2 %; EOSINOPHILS % (AUTO) 0.1 %; HCT - HEMATOCRIT 40.2 % (42.0-52.0); HGB - HEMOGLOBIN 13.4 g/dL (14.0-18.0); LYMPHOCYTES # (AUTO) 1.1 10^3/uL (1.5-3.5); LYMPHOCYTES % (AUTO) 5.9 %; MEAN CORPUSCULAR HEMOGLOBIN 31.3 pg (27.0-31.0); MEAN CORPUSCULAR HGB CONC 33.3 g/dL (32.0-36.0); MEAN CORPUSCULAR VOLUME 93.9 fL (80.0-94.0); MEAN PLATELET VOLUME 9.7 fL (7.4-11.4); MONOCYTES # (AUTO) 1.2 10^3/uL (0.0-1.0); MONOCYTES % (AUTO) 6.6 %; NEUTROPHILS # (AUTO) 15.7 10^3/uL (1.5-6.6); NEUTROPHILS % (AUTO) 86.6 %; PLT - PLATELET COUNT 246 10^3/uL (130-450); RED BLOOD COUNT 4.28 10^6/uL (4.70-6.10); WHITE BLOOD COUNT 18.1 x10^3/uL (4.8-10.8)
[2023-10-20 06:05] LABS: CREATININE 1.3 mg/dL (0.6-1.3); POTASSIUM 3.8 mmol/L (3.5-4.5)
--- NOTE | 2023-10-20 13:11 | PROVIDER PROGRESS NOTE ---
Subjective - Prog Note Date Prog Note Date: 10/20/23 Prog Note Time: 10:00 - Subjective Pt reports feeling: No change Subjective: Patient states he coughed all night despite Tessalon Perles. He did produce much sputum and is coughing much less this morning he did however not get much rest overnight. He was able to have a bowel movement at 9:00 this morning which was normal and is feeling good from that aspect. His has become sick with a mild viral illness. We discussed the possibility of him going home tomorrow and he if he is able to wean off oxygen would like to do so. He is day 4 of 5 of his Rocephin. He has not required any insulin. Current Medications - Current Medications Current Medications: Medications Acetaminophen (Acetaminophen 325 Mg Tablet) 650 mg PO Q4HR PRN PRN Reason: Pain 1 to 4, or Fever Albuterol/Ipratropium (Ipratropium/Albuterol 3 Ml Neb) 3 ml INH RTQID COUNTS INCLUDE 234 BEDS AT THE [facility] Last Admin: 10/20/23 14:35 Dose: 3 ml Benzonatate (Benzonatate 100 Mg Capsule) 100 mg PO TID PRN PRN Reason: Cough Last Admin: 10/20/23 13:39 Dose: 100 mg Ceftriaxone Sodium 1 gm/ (Sodium Chloride) 100 mls @ 200 mls/hr IV DAILY COUNTS INCLUDE 234 BEDS AT THE [facility] Stop: 10/22/23 08:59 Last Admin: 10/20/23 08:40 Dose: 200 mls/hr Guaifenesin (Guaifenesin 600 Mg Tablet) 600 mg PO BID COUNTS INCLUDE 234 BEDS AT THE [facility] Last Admin: 10/20/23 08:40 Dose: 600 mg Heparin Sodium (Porcine) (Heparin 5,000 Unit/Ml Vial) 5,000 unit SUBQ BID COUNTS INCLUDE 234 BEDS AT THE [facility] Last Admin: 10/20/23 08:41 Dose: 5,000 unit Insulin Human Lispro (Insulin Lispro 300 Unit/3 Ml Pen) 1 - 5 unit SUBQ 0800,1200,1700,2100 COUNTS INCLUDE 234 BEDS AT THE [facility]; Protocol Last Admin: 10/20/23 12:05 Dose: Not Given Prednisone (Prednisone 20 Mg Tablet) 40 mg PO DAILY COUNTS INCLUDE 234 BEDS AT THE [facility] Last Admin: 10/20/23 08:40 Dose: 40 mg Objective - Vital Signs/Intake & Output Reviewed Vital Signs: Yes Vital Signs: Vital Signs x48h Temp Pulse Pulse Resp BP Pulse Ox O2 Flow Rate 10/20/23 11:09 87 16 4 06/06/24 08:17 36.8 C 91 18 138/74 H 87 L 3 10/20/23 06:06 92 18 4 10/20/23 05:58 36.8 C 86 18 142/72 H 94 4 Intake & Output: Intake & Output 10/17/23 10/18/23 10/19/23 10/20/23 23:59 23:59 23:59 23:59 Intake Total 250 3098.333 3146.667 1240 Output Total 250 Balance 250 2848.333 3146.667 1240 - Objective General Appearance: positive: No acute distress Eyes Bilateral: positive: Normal inspection ENT: positive: ENT inspection nml Neck: positive: Nml inspection Respiratory: positive: Chest non-tender, No respiratory distress, Breath sounds nml Cardiovascular: positive: Regular rate & rhythm Abdomen: positive: Non-tender Back: positive: Nml inspection Skin: positive: Color nml, No rash Extremities: positive: Non-tender, No pedal edema Neurologic/Psychiatric: positive: Oriented x3 - Lab Results Fish Bones: 10/20/23 05:30 10/20/23 05:30 Other Labs: Lab Results x24hrs 10/20/23 10/20/23 10/20/23 Range/Units 11:50 07:55 05:30 WBC (4.8-10.8) x10^3/uL RBC (4.70-6.10) 10^6/uL Hgb (14.0-18.0) g/dL Hct (42.0-52.0) % MCV (80.0-94.0) fL MCH (27.0-31.0) pg MCHC (32.0-36.0) g/dL RDW (12.0-15.0) % Plt Count (130-450) 10^3/uL MPV (7.4-11.4) fL Neut # (Auto) (1.5-6.6) 10^3/uL Lymph # (Auto) (1.5-3.5) 10^3/uL [place] # (Auto) (0.0-1.0) 10^3/uL Eos # (Auto) (0.0-0.7) 10^3/uL Baso # (Auto) (0.0-0.1) 10^3/uL Absolute Nucleated RBC x10^3/uL Nucleated RBC % /100WBC Sodium 139 (135-145) mmol/L Potassium 3.8 (3.5-4.5) mmol/L Chloride 112 H (101-111) mmol/L Carbon Dioxide 22 (21-32) mmol/L Anion Gap 5.0 L (6-13) BUN 17 (6-20) mg/dL Creatinine 1.3 (0.6-1.3) mg/dL Estimated GFR (MDRD) 55 L (>89) Glucose 87 (74-104) mg/dL POC Whole Bld Glucose 106 H 88 (70 - 100) mg/dL Calcium 9.0 (8.5-10.3) mg/dL 10/20/23 10/19/23 10/19/23 Range/Units 05:30 20:30 16:41 WBC 18.1 H (4.8-10.8) x10^3/uL RBC 4.28 L (4.70-6.10) 10^6/uL Hgb 13.4 L (14.0-18.0) g/dL Hct 40.2 L (42.0-52.0) % MCV 93.9 (80.0-94.0) fL MCH 31.3 H (27.0-31.0) pg MCHC 33.3 (32.0-36.0) g/dL RDW 15.0 (12.0-15.0) % Plt Count 246 (130-450) 10^3/uL MPV 9.7 (7.4-11.4) fL Neut # (Auto) 15.7 H (1.5-6.6) 10^3/uL Lymph # (Auto) 1.1 L (1.5-3.5) 10^3/uL [place] # (Auto) 1.2 H (0.0-1.0) 10^3/uL Eos # (Auto) 0.0 (0.0-0.7) 10^3/uL Baso # (Auto) 0.0 (0.0-0.1) 10^3/uL Absolute Nucleated RBC 0.00 x10^3/uL Nucleated RBC % 0.0 /100WBC Sodium (135-145) mmol/L Potassium (3.5-4.5) mmol/L Chloride (101-111) mmol/L Carbon Dioxide (21-32) mmol/L Anion Gap (6-13) BUN (6-20) mg/dL Creatinine (0.6-1.3) mg/dL Estimated GFR (MDRD) (>89) Glucose (74-104) mg/dL POC Whole Bld Glucose 139 H 143 H (70 - 100) mg/dL Calcium (8.5-10.3) mg/dL ABX Reporting Has patient been on IV antibiotics over the past 48 hours?: Yes Sepsis Event Note (H) - Evaluation Current Stage of Sepsis: Resolved Possible source of Sepsis: positive: Pulmonary - Sepsis Criteria Sepsis Criteria: Recorded Heart Rate greater than 90 bpm, Recorded Respiratory Rate greater than 20, Respiratory: Increasing oxygen requirements, WBC count greater than 12,000 or less than 4000 Assessment/Plan - Problem List (1) Acute respiratory failure with hypoxia Impression: Assessment/Plan: Impression: Patient presents as cough, congestion, and pneumonia on chest x-ray. Started on antibiotics, nebulizers, inhaled steroids. Started at 13 L Oxymizer. currently on4L NS @96% This is an improvement over 5 L by Oxymizer yesterday.. White cell count was 21.5 thousand on admission with a left shift. Today His white count is 18.1.. He shares with me that his baseline O2 sat with a COPD is 92% on room air. He has not needed oxygen yet in the outpatient environment. Here he has been able to get up to the bathroom with assistance. Blood cultures have been ordered and are pending- no reported growth. I ordered sputum cultures this morning in response to his elevated sputum production overnight.Collected sputum is at the bedside this morning.. Plan: continue rocephin Day #4/5, He has completed azithromycin. His oxygen requirements are decreased today. If blood cultures come back positive, I will then adjust antibiotics and jesus row treatment plan depending on sensitivities (3) COPD with respiratory failure, acute Impression: anatomy of centrilobular emphysema discussed with the patient and previously by Dr Hernandez At home he is usually on respi click with albuterol, and Tiotropium. Here we have him on DuoNeb and prednisone p.o. Plan: Stop prednisone at 5 days (currently day 3/5). Continue DuoNeb until discharge. (4) Type 2 diabetes mellitus, uncontrolled Impression: At home he takes Jardiance. He is not on anything for his glucose here. had some hyperglycemia, and therefore SSI was ordered. Plan: he is on Sliding scale insulin with hypoglycemia protocol- 1 dose of 1 unit of insulin has been required.. POC glucose readings have ranged 112-143. He will stay on this medication and I will continue to monitor glucose. Qualifiers: Glycemic state: with hyperglycemia Qualified Code(s): E11.65 - Type 2 diabetes mellitus with hyperglycemia (5) Hypertension Impression: At home he is on Norvasc, beta-sheila, and ARB . Blood pressure is improving. He is running in the high 130s to mid 140s systolic this afternoon. Will institute his beta-sheila today. Qualifiers: Hypertension type: primary hypertension Qualified Code(s): I10 - Essential (primary) hypertension
[2023-10-20] MEDS: METOPROLOL SUCCINATE 50 MG TABLET PO SCH (20:51)
[2023-10-21 06:01] LABS: BASOPHILS % (AUTO) 0.1 %; EOSINOPHILS % (AUTO) 0.2 %; HCT - HEMATOCRIT 41.5 % (42.0-52.0); HGB - HEMOGLOBIN 13.2 g/dL (14.0-18.0); LYMPHOCYTES # (AUTO) 1.2 10^3/uL (1.5-3.5); LYMPHOCYTES % (AUTO) 8.7 %; MEAN CORPUSCULAR HEMOGLOBIN 30.1 pg (27.0-31.0); MEAN CORPUSCULAR HGB CONC 31.8 g/dL (32.0-36.0); MEAN CORPUSCULAR VOLUME 94.5 fL (80.0-94.0); MEAN PLATELET VOLUME 9.8 fL (7.4-11.4); MONOCYTES # (AUTO) 1.1 10^3/uL (0.0-1.0); MONOCYTES % (AUTO) 7.5 %; NEUTROPHILS # (AUTO) 11.6 10^3/uL (1.5-6.6); NEUTROPHILS % (AUTO) 82.6 %; PLT - PLATELET COUNT 262 10^3/uL (130-450); RED BLOOD COUNT 4.39 10^6/uL (4.70-6.10); RED CELL DISTRIBUTION WIDTH 14.7 % (12.0-15.0); WHITE BLOOD COUNT 14.1 x10^3/uL (4.8-10.8)
[2023-10-21 06:24] LABS: CREATININE 1.2 mg/dL (0.6-1.3); POTASSIUM 3.9 mmol/L (3.5-4.5)
--- NOTE | 2023-10-21 14:09 | PROVIDER PROGRESS NOTE ---
Subjective - Prog Note Date Prog Note Date: 10/21/23 Prog Note Time: 14:08 - Subjective Pt reports feeling: Improved Subjective: Has been gradually improving. He is remaining on about 4 L via nasal cannula and is able to take walks on this. We have attempted to decrease his oxygen flow to 2 L and even onto room air but eventually he falls down below 90%. He continues to have some cough and continues to have some dyspnea on exertion he is not having any chest pain. Current Medications - Current Medications Current Medications: Medications Albuterol/Ipratropium (Ipratropium/Albuterol 3 Ml Neb) 3 ml INH RTQID [facility] Last Admin: 10/21/23 10:03 Dose: 3 ml Prednisone (Prednisone 20 Mg Tablet) 40 mg PO DAILY [facility] Last Admin: 10/21/23 08:53 Dose: 40 mg Acetaminophen (Acetaminophen 325 Mg Tablet) 650 mg PO Q4HR PRN PRN Reason: Pain 1 to 4, or Fever Benzonatate (Benzonatate 100 Mg Capsule) 100 mg PO TID PRN PRN Reason: Cough Last Admin: 10/20/23 20:51 Dose: 100 mg Ceftriaxone Sodium 1 gm/ (Sodium Chloride) 100 mls @ 200 mls/hr IV DAILY [facility] Stop: 10/22/23 08:59 Last Admin: 10/21/23 08:53 Dose: 200 mls/hr Guaifenesin (Guaifenesin 600 Mg Tablet) 600 mg PO BID [facility] Last Admin: 10/21/23 08:53 Dose: 600 mg Heparin Sodium (Porcine) (Heparin 5,000 Unit/Ml Vial) 5,000 unit SUBQ BID [facility] Last Admin: 10/21/23 08:58 Dose: 5,000 unit Insulin Human Lispro (Insulin Lispro 300 Unit/3 Ml Pen) 1 - 5 unit SUBQ 0800,1200,1700,2100 [facility]; Protocol Last Admin: 10/21/23 16:53 Dose: Not Given Metoprolol Succinate (Metoprolol Succinate 50 Mg Tablet) 50 mg PO QPM [facility] Last Admin: 10/20/23 20:51 Dose: 50 mg Objective - Vital Signs/Intake & Output Vital Signs: Vital Signs x48h Temp Pulse Pulse Resp BP Pulse Ox O2 Flow Rate 10/21/23 13:26 36.7 C 87 20 124/66 94 4 10/21/23 10:08 4 10/21/23 10:06 79 18 4 10/21/23 07:31 36.7 C 81 20 151/77 H 94 4 Intake & Output: Intake & Output 10/18/23 10/19/23 10/20/23 10/21/23 23:59 23:59 23:59 23:59 Intake Total 3098.333 3146.667 3230 1715 Output Total 250 Balance 2848.333 3146.667 3230 1715 - Objective General Appearance: positive: No acute distress, Mild distress ENT: positive: ENT inspection nml Neck: positive: Nml inspection Respiratory: positive: No respiratory distress, Breath sounds nml. negative: Wheezes, Rales, Rhonchi Cardiovascular: positive: Regular rate & rhythm Peripheral Pulses: 2+ Dorsalis pedis (R), 2+ Dorsalis pedis (L) Abdomen: positive: No distention Skin: positive: Color nml Extremities: positive: Non-tender Neurologic/Psychiatric: positive: Oriented x3 - Lab Results Fish Bones: 10/21/23 05:35 10/21/23 05:35 Other Labs: Lab Results x24hrs 10/21/23 10/21/23 10/21/23 Range/Units 11:14 07:26 05:35 WBC (4.8-10.8) x10^3/uL RBC (4.70-6.10) 10^6/uL Hgb (14.0-18.0) g/dL Hct (42.0-52.0) % MCV (80.0-94.0) fL MCH (27.0-31.0) pg MCHC (32.0-36.0) g/dL RDW (12.0-15.0) % Plt Count (130-450) 10^3/uL MPV (7.4-11.4) fL Neut # (Auto) (1.5-6.6) 10^3/uL Lymph # (Auto) (1.5-3.5) 10^3/uL [place] # (Auto) (0.0-1.0) 10^3/uL Eos # (Auto) (0.0-0.7) 10^3/uL Baso # (Auto) (0.0-0.1) 10^3/uL Absolute Nucleated RBC x10^3/uL Nucleated RBC % /100WBC Sodium 139 (135-145) mmol/L Potassium 3.9 (3.5-4.5) mmol/L Chloride 110 (101-111) mmol/L Carbon Dioxide 25 (21-32) mmol/L Anion Gap 4.0 L (6-13) BUN 15 (6-20) mg/dL Creatinine 1.2 (0.6-1.3) mg/dL Estimated GFR (MDRD) 60 L (>89) Glucose 79 (74-104) mg/dL POC Whole Bld Glucose 97 85 (70 - 100) mg/dL Calcium 9.0 (8.5-10.3) mg/dL 10/21/23 10/20/23 10/20/23 Range/Units 05:35 20:26 16:17 WBC 14.1 H (4.8-10.8) x10^3/uL RBC 4.39 L (4.70-6.10) 10^6/uL Hgb 13.2 L (14.0-18.0) g/dL Hct 41.5 L (42.0-52.0) % MCV 94.5 H (80.0-94.0) fL MCH 30.1 (27.0-31.0) pg MCHC 31.8 L (32.0-36.0) g/dL RDW 14.7 (12.0-15.0) % Plt Count 262 (130-450) 10^3/uL MPV 9.8 (7.4-11.4) fL Neut # (Auto) 11.6 H (1.5-6.6) 10^3/uL Lymph # (Auto) 1.2 L (1.5-3.5) 10^3/uL [place] # (Auto) 1.1 H (0.0-1.0) 10^3/uL Eos # (Auto) 0.0 (0.0-0.7) 10^3/uL Baso # (Auto) 0.0 (0.0-0.1) 10^3/uL Absolute Nucleated RBC 0.00 x10^3/uL Nucleated RBC % 0.0 /100WBC Sodium (135-145) mmol/L Potassium (3.5-4.5) mmol/L Chloride (101-111) mmol/L Carbon Dioxide (21-32) mmol/L Anion Gap (6-13) BUN (6-20) mg/dL Creatinine (0.6-1.3) mg/dL Estimated GFR (MDRD) (>89) Glucose (74-104) mg/dL POC Whole Bld Glucose 139 H 143 H (70 - 100) mg/dL Calcium (8.5-10.3) mg/dL ABX Reporting Has patient been on IV antibiotics over the past 48 hours?: Yes Sepsis Event Note (H) - Evaluation Current Stage of Sepsis: Resolved Possible source of Sepsis: positive: Pulmonary - Sepsis Criteria Sepsis Criteria: WBC count greater than 12,000 or less than 4000 Assessment/Plan - Problem List (1) Acute respiratory failure with hypoxia Impression: Impression: Assessment/Plan: Impression: Patient presents as cough, congestion, and pneumonia on chest x-ray. Started on antibiotics, nebulizers, inhaled steroids. Started at 13 L Oxymizer. currently on4L NS @94% White cell count was 21.5 thousand on admission with a left shift. Today His white count is 14.1.. He shares with me that his baseline O2 sat with a COPD is 92% on room air. He has not needed oxygen yet in the outpatient environment. Here he has been able to get up to the bathroom with assistance. Blood cultures have been ordered and are pending- no reported growth. preliminary respiratory cultures are negative- gram stain showing many WBCs. Plan: completed rocephin. He has completed azithromycin. His oxygen requirements are stable today. If blood cultures come back positive, I will then adjust antibiotics and narro w treatment plan depending on sensitivities (3) COPD with respiratory failure, acute Impression: anatomy of centrilobular emphysema discussed with the patient and previously by Dr Hernandez At home he is usually on respi click with albuterol, and Tiotropium. Here we have him on DuoNeb and prednisone p.o. Plan: Stop prednisone at 5 days (currently day 4/5). Continue DuoNeb until discharge. (4) Type 2 diabetes mellitus, uncontrolled Impression: At home he takes Jardiance. He is not on anything for his glucose here. had some hyperglycemia, and therefore SSI was ordered. Plan: he is on Sliding scale insulin with hypoglycemia protocol-no doses of insulin have been required today. He will stay on this medication and I will continue to monitor glucose. Qualifiers: Glycemic state: with hyperglycemia Qualified Code(s): E11.65 - Type 2 d iabetes mellitus with hyperglycemia (5) Hypertension Impression: At home he is on Norvasc, beta-sheila, and ARB . today he has been normotensive with one BP 135/74. Will continue on beta sheila, and not restart other home meds. Qualifiers: Hypertension type: primary hypertension Qualified Code(s): I10 - Essential (primary) hypertension
[2023-10-21 23:49] VITALS: O2SAT 94
[2023-10-22 05:54] LABS: BASOPHILS % (AUTO) 0.3 %; EOSINOPHILS # (AUTO) 0.1 10^3/uL (0.0-0.7); EOSINOPHILS % (AUTO) 0.8 %; HCT - HEMATOCRIT 39.8 % (42.0-52.0); HGB - HEMOGLOBIN 13.4 g/dL (14.0-18.0); LYMPHOCYTES # (AUTO) 1.6 10^3/uL (1.5-3.5); LYMPHOCYTES % (AUTO) 14.5 %; MEAN CORPUSCULAR HEMOGLOBIN 30.9 pg (27.0-31.0); MEAN CORPUSCULAR HGB CONC 33.7 g/dL (32.0-36.0); MEAN CORPUSCULAR VOLUME 91.7 fL (80.0-94.0); MEAN PLATELET VOLUME 9.5 fL (7.4-11.4); MONOCYTES % (AUTO) 8.7 %; NEUTROPHILS # (AUTO) 8.1 10^3/uL (1.5-6.6); NEUTROPHILS % (AUTO) 73.4 %; PLT - PLATELET COUNT 269 10^3/uL (130-450); RED BLOOD COUNT 4.34 10^6/uL (4.70-6.10); RED CELL DISTRIBUTION WIDTH 14.5 % (12.0-15.0); WHITE BLOOD COUNT 11.1 x10^3/uL (4.8-10.8)
[2023-10-22 06:15] LABS: CALCIUM 9.2 mg/dL (8.5-10.3); CREATININE 1.3 mg/dL (0.6-1.3); POTASSIUM 3.7 mmol/L (3.5-4.5)
[2023-10-22 09:29] VITALS: BP 145/68
--- NOTE | 2023-10-22 13:12 | Discharge Plan ---
Discharge Plan Problem Reviewed?: Yes Disposition: Home, Self Care Condition: Good Prescriptions: guaiFENesin [Mucinex] 600 mg PO BID #20 tab Benzonatate [Tessalon] 100 mg PO TID PRN #30 cap PRN Reason: Cough Diet: Regular Activity Restrictions: Activity as Tolerated Shower Restrictions: No Driving Restrictions: No Instruction Topics: COPD, Pneumonia Health Concerns: Your lungs have been put under stress from this infection. We have every reason to believe that with time your need for oxygen will decrease and you will improve back to your baseline level of functioning. When you get home it is important that you follow-up with Dr. Zamudio. I would recommend that you also be seen and evaluated by a motorcycle subassembler so that they can take further steps to help control your chronic lung disease. Please resume all of your previous medications with 2 exceptions. Your blood pressure has been well-controlled here in the hospital using the metoprolol. I am concerned that if you restart the telmisartan and the amlodipine your blood pressure will drop too low. Hold these medications, and if possible monitor your blood pressure at home. I think that as you improve you will need these medications again. Resume your Jardiance for diabetes control. You have been treated with azithromycin and Rocephin here in the hospital you have completed a course of these. Additionally, you have finished a course of prednisone therapy. You have been treated with oxygen and while your oxygen needs have greatly decreased you will need supplemental oxygen in the outpatient environment. It is still okay for you to walk is much as tolerated with your oxygen in place. Plan of Treatment: Resume all home inhalers. Oxygen to assist with difficulty breathing. Care Goals: I feel confident that she will be able to wean off of oxygen it may take several weeks. You may be able to get off it before you leave [place]. Assessment: You were admitted to the hospital with inability to breathe and a pneumonia in combination with your COPD. Your respiratory status improved in the emergency department but and not enough for you to go home and therefore you were admitted and placed on antibiotics steroids and breathing treatments. You required a large amount of supplemental oxygen, and this need decreased over time. However you will need to be discharged home on oxygen therapy. You had cultures of both your blood and respiratory secretions. Neither of these cultures grew any bad germs, which is good news. Your white blood cell count has decreased over time from 29.1 down to 11 today. You are doing well. You are able to walk and you have completed all of your antibiotic therapy. I think you will continue to heal at home. Because you have no local care providers please seek care here at the Medical Center or in one of the walk-in clinics should you begin to have increasing shortness of breath, chest pain or any other symptoms that concern you. No Smoking: If you smoke, Please STOP! Call for help.
--- NOTE | 2023-10-22 13:47 | DISCHARGE SUMMARY ---
Discharge Summary Admit Date: 10/17/23 Discharge Date: 10/22/23 Discharging Provider: Essie Khanna PA-C Primary Care Provider: Roxana Zamudio [facility], ID Code Status: Attempt Resuscitation Condition at Discharge: Good Discharge Disposition: Home, Self Care - DIAGNOSES Admission Diagnoses: Community-acquired pneumonia Acute hypoxic respiratory failure secondary to COPD exacerbation and community- acquired pneumonia Hypertension Acute kidney injury Discharge Diagnoses with Status of Each Condition: Pneumonia At the time of admission CTA of the chest was positive for patchy bilateral groundglass opacities as well as confluent centrilobular emphysema. Patient was started on azithromycin, 3-day course, Rocephin, 5-day course and 5- day course of prednisone. He completed this therapy. At the time of admission he was hypoxic and required 13 L of oxygen via Oxymizer. His requirements dropped over ensuing days and on hospital day 6 he continued to require 4 L via nasal cannula. He was discharged to home with home oxygen therapy. Acute respiratory failure with hypoxia Presented with significant oxygen requirements as above. Was treated with 5 days of prednisone therapy. Continues to improve at the time of discharge requiring 4 L via nasal cannula.. discharge home with O2 therapy. COPD with acute respiratory failure. Central lobular emphysema. Home therapy with Repi click albuterol aand ipatropium. Treated inpatient with DuoNeb and prednisone. Completed a 5-day course of p.o. prednisone. He was encouraged to follow-up with his primary care provider when he arrives home in [facility]. He was also encouraged to seek pulmonary consultation. Type 2 diabetes with hyperglycemia At home takes Jardiance. Was covered with sliding scale insulin here, given that he was on prednisone. Required very little insulin.. Hypertension As an outpatient takes amlodipine, metoprolol and telmisartan. His blood pressure did increase over the course of his admission and his metoprolol was restarted, however we continue to hold his amlodipine and telmisartan and recommend that he do this in the outpatient environment. He has strict instructions to follow-up with his primary care provider. Acute kidney injury. At the time of admission creatinine was 1.5. Baseline creatinine unknown. This is improved to upper limits of normal, 1.3 with minimal treatment. 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 Presents to the ER with c/o shortness of breath. Onset this afternoon. He reports he had been coughing some yellow/green sputum earlier as well. He was wheezing, improved now since receiving steroids and nebs in the ER. He denies chest pain, palpitations, abd pain, n/v, diarrhea, dysuria, hematuria. Denies fevers or chills. Denies hemoptysis. Denies sick contacts (aside from any possible exposures while traveling). He is visiting from [facility]. He does not use home O2. Reports compliance with home meds/inhalers. He has never requiring hospitalization for COPD in the past. - HOSPITAL COURSE Hospital Course: Admitted with a sudden onset of symptoms and history of COPD does not use home O2. His O2 sat at baseline is 92% on room air. Over the course of his admission his oxygen requirements decreased from 13 L Oxymizer to 4 L via nasal cannula. This was in the setting of being treated with azithromycin x 3 days, Rocephin x 5 days, prednisone x 5 days. On hospital day 6 his O2 requirement had been stable for over 24 hours at 4 L via nasal cannula therefore the decision was made to discharge him home on oxygen therapy. Leukocytosis tachypnea and hypoxia on admission. Leukocytosis almost normalized on the day of discharge white blood cell count 11.1. He is treated for diabetes as an outpatient with Jardiance. This was held while hospitalized. He required minimal coverage with sliding scale insulin. His blood pressure was stable and blood pressure medications use as an outpatient will help with the majority of his hospitalization his beta-sheila was started prior to discharge. Baseline creatinine was unknown but creatinine was slightly elevated at admission, 1.5. IV hydration caused resolution of this mild acute kidney injury. - ALLERGIES Allergies/Adverse Reactions: Allergies Allergy/AdvReac Type Severity Reaction Status Date / Time No Known Drug Allergies Allergy Verified 10/17/23 18:59 - MEDICATIONS Home Medications: Ambulatory Orders Medication Instructions Recorded Confirmed Albuterol Sulfate [Proair See Rx Instructions .ROUTE 10/17/23 10/17/23 Respiclick] .COMPLEX PRN Aspirin EC [Ecotrin] 81 mg PO DAILY 10/17/23 10/18/23 Atorvastatin Calcium [Lipitor] 80 mg PO QPM 10/17/23 10/18/23 Colesevelam HCl [Welchol] 1,250 mg PO BIDWM 10/17/23 10/18/23 Empagliflozin [Jardiance] 10 mg PO DAILY 10/17/23 10/18/23 Ezetimibe [Zetia] 10 mg PO HS 10/17/23 10/18/23 Fexofenadine [Alexandria] 60 mg PO DAILY 10/17/23 10/18/23 Metoprolol Succinate [Toprol Xl] 50 mg PO QPM 10/17/23 10/17/23 Omeprazole 20 mg PO HS 10/17/23 10/18/23 Terazosin [Hytrin] 5 mg PO HS 10/17/23 10/18/23 Tiotropium Br/Olodaterol HCl 2 puffs INH DAILY 10/17/23 10/17/23 [Stiolto Respimat Inhaler (60)] Benzonatate [Tessalon] 100 mg PO TID PRN #30 cap 10/22/23 guaiFENesin [Mucinex] 600 mg PO BID #20 tab 10/22/23 - PHYSICAL EXAM AT DISCHARGE General Appearance: positive: No acute distress Eyes Bilateral: positive: Normal inspection ENT: positive: ENT inspection nml Neck: positive: Nml inspection Respiratory: positive: Chest non-tender, No respiratory distress, Breath sounds nml. negative: Wheezes, Rales, Rhonchi Cardiovascular: positive: Regular rate & rhythm Abdomen: positive: Non-tender Back: positive: Nml inspection Skin: positive: Color nml Extremities: positive: Non-tender Neurologic/Psychiatric: positive: Oriented x3 - LABS Result Diagrams: 10/22/23 05:20 10/22/23 05:20 - SEPSIS Current Stage of Sepsis: Resolved Possible source of Sepsis: Pulmonary Sepsis Criteria: WBC count greater than 12,000 or less than 4000 - FOLLOW UP Follow Up: PCP in [facility] as soon as he arrives home. recommended pulmonology consult - TIME SPENT Time Spent in Discharge (Minutes): 45 (time spent in education of patient and family, discharge coordination with respiratory therapy. )
== END 2023-10-22 14:45 | disposition home or self-care (01) | DRG 871 ==
LOC: ED 18:55 → MS2 23:57
PROVIDERS: ADMIT Student in an Organized Health Care Education/Training Program; ATTEND Physician Assistant Medical
DX: A41.9 Sepsis, unspecified organism (principal); J18.9 Pneumonia, unspecified organism; J96.01 Acute respiratory failure with hypoxia; J44.0 Chronic obstructive pulmonary disease with (acute) lower respiratory infection; J44.1 Chronic obstructive pulmonary disease with (acute) exacerbation; N17.9 Acute kidney failure, unspecified; R00.0 Tachycardia, unspecified; Z20.822 Contact with and (suspected) exposure to COVID-19; I10 Essential (primary) hypertension; E11.65 Type 2 diabetes mellitus with hyperglycemia; D72.829 Elevated white blood cell count, unspecified; E78.00 Pure hypercholesterolemia, unspecified; Z79.82 Long term (current) use of aspirin; Z79.84 Long term (current) use of oral hypoglycemic drugs; Z79.899 Other long term (current) drug therapy; Z87.891 Personal history of nicotine dependence; Z91.85 Personal history of military service
CPT/HCPCS: 36415; 71045; 71275; 80048; 80053; 82803; 83036; 83605; 83735; 84100; 84145; 84484; 85025; 85027; 87040; 87070; 87205; 87633; 93005; 94640; 94664; 94761; 96365; 96375; 99285; A9270; J7512; Q9967